=== PATIENT | male | born 1965 ===

== ENCOUNTER 2023-01-07 08:35 | Day surgery (SDC) | payer OTHER ==
[~2023-01-07] VITALS: Ht 182.9 cm; Wt 97.0 kg
[~2023-01-07 08:35] MED LIST: CIPR500 PO; METR500 PO; NAPR500 PO; PROC10 PO
[2023-01-07] MEDS ORDERED: LISI20 PO (08:56)
--- NOTE | 2023-01-07 10:00 | NUR ---
01/07/23 Lilian Plascencia LATE ENTRY: MD OLIVARES AWARE OF HIGH BP PREOP [id number]. OK TO PROCEED WITH PROCEDURE PER MD OLIVARES.
== END 2023-01-07 10:51 | disposition home or self-care (01) ==
LOC: ORSCSDS 08:35
PROVIDERS: Internal Medicine Gastroenterology
PROC: 0DBN8ZX Excision of Sigmoid Colon, Via Natural or Artificial Opening Endoscopic, Diagnostic (ICD-10-PCS; principal; 2023-01-07 10:00)
PROC: 0DBP8ZX Excision of Rectum, Via Natural or Artificial Opening Endoscopic, Diagnostic (ICD-10-PCS; principal; 2023-01-07 10:00)
PROC: 0DBM8ZX Excision of Descending Colon, Via Natural or Artificial Opening Endoscopic, Diagnostic (ICD-10-PCS; principal; 2023-01-07 10:00)
DX: Z12.11 Encounter for screening for malignant neoplasm of colon (principal); D12.4 Benign neoplasm of descending colon; K63.5 Polyp of colon; D37.5 Neoplasm of uncertain behavior of rectum; K57.30 Diverticulosis of large intestine without perforation or abscess without bleeding; Z79.899 Other long term (current) drug therapy
CPT/HCPCS: 88305; J2704; J7120